=== PATIENT | male | born 1940 | race Asian ===

== ENCOUNTER 2017-07-04 16:00 | Outpatient (RCR) | payer MEDICARE | END 2017-07-20 | LOC: PT 16:00 | PROVIDERS: ATTEND Specialist | DX: M47.816 Spondylosis without myelopathy or radiculopathy, lumbar region (principal); M62.81 Muscle weakness (generalized); R29.3 Abnormal posture | CPT/HCPCS: 97110; 97162; G8981; G8982 ==

== ENCOUNTER → 2018-04-25 | Outpatient (CLI) | payer MEDICARE ==
--- NOTE | 2018-04-25 18:35 | Diagnostic Imaging Report ---
Frontal and lateral views of the chest. HISTORY: Left lower chest pain COMPARISON: None available. DISCUSSION: Lungs: Low lung volumes result in bibasilar vascular crowding, accentuation of the pulmonary interstitial markings, central pulmonary vasculature, and the cardiac silhouette. Allowing for these limitations, the findings are as follows: Mild left basilar atelectasis. No evidence of a consolidative pneumonia or pulmonary alveolar edema. Pleura: No pleural effusion or pneumothorax. Heart and mediastinum: The cardiomediastinal silhouette appears unremarkable. Bones: No acute osseous lesion. IMPRESSION: 1. Mild left basilar atelectasis. 2. Otherwise, no acute radiographic abnormality. Signed by: Dr. Speedy Wick D.O., M.M.M. on 04/25/2018 6:31 PM
== END ==
LOC: RAD 17:27
PROVIDERS: ATTEND Internal Medicine
DX: J44.1 Chronic obstructive pulmonary disease with (acute) exacerbation (principal)
CPT/HCPCS: 71046

== ENCOUNTER 2020-06-15 11:42 | Emergency (ER) | payer MEDICARE ==
[~2020-06-15] VITALS: Ht 167.6 cm; Wt 88.0 kg
== END 2020-06-15 14:22 | disposition home or self-care (01) ==
LOC: ER 12:07
DX: M25.562 Pain in left knee (principal); J45.909 Unspecified asthma, uncomplicated
CPT/HCPCS: 93971; 99283

== ENCOUNTER 2020-10-13 15:00 | Outpatient (RCR) | payer MEDICARE | END 2020-10-17 | LOC: PT 15:00 | PROVIDERS: ATTEND Orthopaedic Surgery | DX: S83.272D Complex tear of lateral meniscus, current injury, left knee, subsequent encounter (principal); M25.562 Pain in left knee; M62.81 Muscle weakness (generalized); R26.2 Difficulty in walking, not elsewhere classified ==

== ENCOUNTER 2020-10-29 15:00 | Outpatient (RCR) | payer MEDICARE | END 2020-11-17 | LOC: PT 15:00 | PROVIDERS: ATTEND Orthopaedic Surgery | DX: S83.272D Complex tear of lateral meniscus, current injury, left knee, subsequent encounter (principal); M25.562 Pain in left knee; M62.81 Muscle weakness (generalized); R26.2 Difficulty in walking, not elsewhere classified ==

== ENCOUNTER 2022-02-02 12:46 | Emergency (ER) | payer MEDICARE, OTHER ==
[~2022-02-02] VITALS: Ht 167.6 cm; Wt 88.0 kg
[2022-02-02 14:35] VITALS: BP 153/61
== END 2022-02-02 14:23 | disposition home or self-care (01) ==
LOC: ER 12:50
DX: S80.02XA Contusion of left knee, initial encounter (principal); S00.81XA Abrasion of other part of head, initial encounter; W01.0XXA Fall on same level from slipping, tripping and stumbling without subsequent striking against object, initial encounter; Y93.01 Activity, walking, marching and hiking; Y92.481 Parking lot as the place of occurrence of the external cause
CPT/HCPCS: 70450; 99284

== ENCOUNTER 2023-05-11 14:02 | Outpatient (RCR) | payer MEDICARE | END 2023-05-19 | LOC: PT 14:02 | PROVIDERS: ATTEND Internal Medicine | DX: M41.9 Scoliosis, unspecified (principal); M54.9 Dorsalgia, unspecified; J44.9 Chronic obstructive pulmonary disease, unspecified ==

== ENCOUNTER 2023-12-16 12:55 | Outpatient (RCR) | payer MEDICARE | END 2023-12-18 | LOC: PT 12:55 | PROVIDERS: ATTEND Internal Medicine | DX: M13.852 Other specified arthritis, left hip (principal); M13.851 Other specified arthritis, right hip; M47.816 Spondylosis without myelopathy or radiculopathy, lumbar region ==

== ENCOUNTER 2023-12-30 14:54 | Outpatient (RCR) | payer MEDICARE | END 2024-01-18 | LOC: PT 14:54 | PROVIDERS: ATTEND Internal Medicine | DX: M25.552 Pain in left hip (principal); M41.9 Scoliosis, unspecified ==

== ENCOUNTER 2024-01-19 08:38 | Outpatient (RCR) | payer MEDICARE | END 2024-02-18 | LOC: PT 08:38 | PROVIDERS: ATTEND Internal Medicine | DX: M47.816 Spondylosis without myelopathy or radiculopathy, lumbar region (principal) ==